=== PATIENT | male | born 1980 | race African-American/Black ===

== ENCOUNTER 2018-03-13 08:30 | Emergency (ER) | payer SELFPAY ==
[~2018-03-13] VITALS: Ht 167.6 cm; Wt 68.2 kg
[2018-03-13] MEDS ORDERED: ONDANSETRON ODT 4 MG TAB.RAPDIS ONE (08:35)
[2018-03-13] MEDS ORDERED: ONDANSETRON PF 4 MG/2 ML VIAL. ONE (08:35)
[2018-03-13] MEDS ORDERED: ONDANSETRON ODT 4 MG TAB.RAPDIS PO ONE (08:45)
[2018-03-13] MEDS ORDERED: HYDROmorphone PF 1 MG/ML DISP.SYRIN IV ONE (08:45)
[2018-03-13] MEDS ORDERED: IV NORMAL SALINE 1,000ML 1,000 ML IV ONE (08:45)
[2018-03-13] MEDS ORDERED: ONDANSETRON PF 4 MG/2 ML VIAL. IV ONE ×2 (08:45→13:15)
[2018-03-13] MEDS ORDERED: IOHEXOL 300 MG/ML 75 ML VIAL. IV ONE (09:15)
[2018-03-13 09:21] LABS: BASO # 0.2 x10^3/uL (0.0-0.2); BASO % 1 % (0-3); EOS # 0.2 x10^3/uL (0.0-0.7); EOS % 2 % (0-3); HEMATOCRIT 40.1 % (39.0-53.0); HEMOGLOBIN 13.2 g/dL (13.0-17.5); LYMPH # 1.5 x10^3/uL (1.0-4.8); LYMPH % 10 % (24-48); MEAN CORPUSCULAR HEMOGLOBIN 28 pg (25-35); MEAN CORPUSCULAR HGB CONC 33 g/dL (31-37); MEAN CORPUSCULAR VOLUME 84 fL (79-100); MONO # 0.7 x10^3/uL (0.0-1.1); MONO % 4 % (0-9); NEUT # 12.6 x10^3uL (1.8-7.7); NEUT % 83 % (31-73); PLATELET COUNT 356 x10^3/uL (140-400); RED CELL DISTRIBUTION WIDTH 14.5 % (11.5-14.5); WHITE BLOOD COUNT 15.1 x10^3/uL (4.0-11.0)
[2018-03-13 09:35] LABS: ALBUMIN 3.6 g/dL (3.4-5.0); ALBUMIN/GLOBULIN RATIO 1.1 (1.0-1.7); CALCIUM 8.8 mg/dL (8.5-10.1); GFR 102.3; POTASSIUM 4.7 mmol/L (3.5-5.1); TOTAL BILIRUBIN 0.4 mg/dL (0.2-1.0); TOTAL PROTEIN 6.8 g/dL (6.4-8.2)
--- NOTE | 2018-03-13 10:30 | RAD ---
CT of the abdomen and pelvis with contrast, 03/13/2018: History: Abdominal pain Multidetector CT imaging was performed following an IV bolus injection of iodinated contrast material. No oral contrast material was administered as requested. This limits evaluation of the abdominal structures, particularly in a thin patient such as this with a paucity of intra-abdominal fat. The liver is unremarkable. No dense gallstones are seen. The pancreas cannot be from unopacified bowel. The spleen is of normal size. No renal abnormality is detected. The bowel loops are not dilated. The appendix is not visualized. No dilated appendix or pericecal inflammatory process is seen. No free air is evident in the abdomen or pelvis. There is a suggestion of a small amount of free fluid in the deep pelvis. The urinary bladder is mildly distended. IMPRESSION: 1. Small amount of free fluid in the pelvis. 2. The abdomen and pelvis are otherwise unremarkable. PQRS Compliance Statement: One or more of the following individualized dose reduction techniques were utilized for this examination: 1. Automated exposure control 2. Adjustment of the mA and/or kV according to patient size 3. Use of iterative reconstruction technique
--- NOTE | 2018-03-13 12:02 | PHYS DOC ---
Past History Past Medical History: Diabetes Past Surgical History: No Surgical History Alcohol Use: Occasionally Drug Use: None Adult General Chief Complaint Chief Complaint: NAUSEA/VOMITING/DIARRHEA HPI HPI 37-year-old male presents with vomiting and abdominal pain that started this morning. The patient was feeling normal yesterday. When he woke up this morning , he had abdominal pain that was diffuse cramping. He states that this led to vomiting several times. He is unable to keep down any liquids or solids. He continues to have a diffuse/cramping abdominal pain. He has not had pain like this before. At its worst it is 8 out of 10. Patient is a diabetic and his blood sugars were running in the 200s. Patient denies fever or chills. Review of Systems Review of Systems Constitutional: Denies fever or chills [] Eyes: Denies change in visual acuity, redness, or eye pain [] HENT: Denies nasal congestion or sore throat [] Respiratory: Denies cough or shortness of breath [] Cardiovascular: No additional information not addressed in HPI [] GI: Abdominal pain, vomiting.[] : Denies dysuria or hematuria [] Musculoskeletal: Denies back pain or joint pain [] Integument: Denies rash or skin lesions [] Neurologic: Denies headache, focal weakness or sensory changes [] Endocrine: Denies polyuria or polydipsia [] All other systems were reviewed and found to be within normal limits, except as documented in this note. Current Medications Current Medications Current Medications Medications (Trade) Dose Ordered Sig/Vickie Start Time Stop Time Status Last Admin Dose Admin Hydromorphone HCl (Dilaudid) 1 mg 1X ONCE 03/13/18 08:45 03/13/18 09:03 DC 03/13/18 08:54 1 MG Iohexol (Omnipaque 300 Mg/ml) 75 ml 1X ONCE 03/13/18 09:15 03/13/18 09:16 DC Ondansetron HCl (Zofran Odt) 4 mg 1X ONCE 03/13/18 08:45 03/13/18 09:03 DC 03/13/18 08:52 4 MG Ondansetron HCl (Zofran) 4 mg 1X ONCE 03/13/18 08:45 03/13/18 09:03 DC 03/13/18 08:52 4 MG Sodium Chloride 1,000 ml @ 1,000 mls/hr 1X ONCE 03/13/18 08:45 03/13/18 09:44 DC 03/13/18 08:51 1,000 MLS/HR Allergies Allergies Allergies Coded Allergies Type Severity Reaction Last Updated Verified No Known Drug Allergies 03/13/18 No Physical Exam Physical Exam Constitutional: Well developed, well nourished, mild acute distress, non-toxic appearance. [] HENT: Normocephalic, atraumatic, bilateral external ears normal, oropharynx moist, no oral exudates, nose normal. [] Eyes: PERRLA, EOMI, conjunctiva normal, no discharge. [] Neck: Normal range of motion, no tenderness, supple, no stridor. [] Cardiovascular:Heart rate regular rhythm, no murmur [] Lungs & Thorax: Bilateral breath sounds clear to auscultation [] Abdomen: Diffuse tenderness with guarding. Bowel sounds normal, no masses, no pulsatile masses. [] Skin: Warm, dry, no erythema, no rash. [] Back: No tenderness, no CVA tenderness. [] Extremities: No tenderness, no cyanosis, no clubbing, ROM intact, no edema. [] Neurologic: Alert and oriented X 3, normal motor function, normal sensory function, no focal deficits noted. [] Psychologic: Affect normal, judgement normal, mood normal. [] Current Patient Data Vital Signs Vital Signs Date Time Temp Pulse Resp B/P (MAP) Pulse Ox O2 Delivery O2 Flow Rate FiO2 03/13/18 08:30 98.2 88 24 100 Room Air Lab Results Laboratory Tests Test 03/13/18 08:49 03/13/18 09:03 Glucose (Fingerstick) 243 mg/dL (70-99) H White Blood Count 15.1 x10^3/uL (4.0-11.0) H Red Blood Count 4.80 x10^6/uL (4.30-5.70) Hemoglobin 13.2 g/dL (13.0-17.5) Hematocrit 40.1 % (39.0-53.0) Mean Corpuscular Volume 84 fL (79-100) Mean Corpuscular Hemoglobin 28 pg (25-35) Mean Corpuscular Hemoglobin Concent 33 g/dL (31-37) Red Cell Distribution Width 14.5 % (11.5-14.5) Platelet Count 356 x10^3/uL (140-400) Neutrophils (%) (Auto) 83 % (31-73) H Lymphocytes (%) (Auto) 10 % (24-48) L Monocytes (%) (Auto) 4 % (0-9) Eosinophils (%) (Auto) 2 % (0-3) Basophils (%) (Auto) 1 % (0-3) Neutrophils # (Auto) 12.6 x10^3uL (1.8-7.7) H Lymphocytes # (Auto) 1.5 x10^3/uL (1.0-4.8) Monocytes # (Auto) 0.7 x10^3/uL (0.0-1.1) Eosinophils # (Auto) 0.2 x10^3/uL (0.0-0.7) Basophils # (Auto) 0.2 x10^3/uL (0.0-0.2) Platelet Estimate Pending Sodium Level 139 mmol/L (136-145) Potassium Level 4.7 mmol/L (3.5-5.1) Chloride Level 100 mmol/L (98-107) Carbon Dioxide Level 34 mmol/L (21-32) H Anion Gap 5 (6-14) L Blood Urea Nitrogen 9 mg/dL (8-26) Creatinine 1.0 mg/dL (0.7-1.3) Estimated GFR (Cockcroft-Gault) 102.3 BUN/Creatinine Ratio 9 (6-20) Glucose Level 258 mg/dL (70-99) H Calcium Level 8.8 mg/dL (8.5-10.1) Total Bilirubin 0.4 mg/dL (0.2-1.0) Aspartate Amino Transferase (AST) 13 U/L (15-37) L Alanine Aminotransferase (ALT) 22 U/L (16-63) Alkaline Phosphatase 112 U/L (46-116) Total Protein 6.8 g/dL (6.4-8.2) Albumin 3.6 g/dL (3.4-5.0) Albumin/Globulin Ratio 1.1 (1.0-1.7) Lipase 64 U/L (73-393) L EKG EKG [] Radiology/Procedures Radiology/Procedures [] Impressions: CT of the abdomen and pelvis with contrast, 03/13/2018: History: Abdominal pain Multidetector CT imaging was performed following an IV bolus injection of iodinated contrast material. No oral contrast material was administered as requested. This limits evaluation of the abdominal structures, particularly in a thin patient such as this with a paucity of intra-abdominal fat. The liver is unremarkable. No dense gallstones are seen. The pancreas cannot be from unopacified bowel. The spleen is of normal size. No renal abnormality is detected. The bowel loops are not dilated. The appendix is not visualized. No dilated appendix or pericecal inflammatory process is seen. No free air is evident in the abdomen or pelvis. There is a suggestion of a small amount of free fluid in the deep pelvis. The urinary bladder is mildly distended. IMPRESSION: 1. Small amount of free fluid in the pelvis. 2. The abdomen and pelvis are otherwise unremarkable. PQRS Compliance Statement: One or more of the following individualized dose reduction techniques were utilized for this examination: 1. Automated exposure control 2. Adjustment of the mA and/or kV according to patient size 3. Use of iterative reconstruction technique DICTATED AND SIGNED BY: JACOB PHAM MD DATE: 03/13/18 1020 CC: VON ALBRECHT DO; VISHNU,STAFF Course & Med Decision Making Course & Med Decision Making Pertinent Labs and Imaging studies reviewed. (See chart for details) The patient's labs are unremarkable. His CT scan is remarkable for some free fluid in the pelvis however there is no identified source. It is a small volume. The patient was given 1 L normal saline, 1 mg of Dilaudid, and 4 mg of Zofran IV. He was able to fall asleep after the pain medication. Patient is feeling a bit better at this time. He would like to go home and rest. I believe he has a viral illness. We'll discharge him with Zofran ODT prescription. Stable for discharge at this time [] Dragon Disclaimer Dragon Disclaimer This electronic medical record was generated, in whole or in part, using a voice recognition dictation system. Departure Departure: Referrals: VISHNU,STAFF (PCP) VON ALBRECHT DO Mar 13, 2018 12:02
[2018-03-13 12:13] LABS: % ATYL 1 % (0-0); % BANDS 0 % (0-9); % BASOS 1 % (0-3); % EOS 0 % (0-5); % LYMPHS 13 % (24-48); % MONOS 5 % (0-10); % SEGS 80 % (35-66); PLT ESTIMATE ADEQUATE (ADEQUATE)
[2018-03-13] MEDS ORDERED: ONDA4TAB10 SL (12:42)
[2018-03-13] MEDS ORDERED: KETOROLAC 30 MG/ML VIAL. ONE (12:55)
[2018-03-13 12:58] VITALS: BP 164/99
[2018-03-13] MEDS ORDERED: KETOROLAC 30 MG/ML VIAL. IV ONE (13:00)
== END 2018-03-13 13:03 | disposition home or self-care (01) ==
LOC: ER 08:30
DX: R10.84 Generalized abdominal pain (principal); R11.10 Vomiting, unspecified; E11.9 Type 2 diabetes mellitus without complications
CPT/HCPCS: 36415; 74177; 80053; 82947; 83690; 85007; 85025; 96361; 96374; 96375; 99285; J1170; J1885; J2405; Q0162; J7030